=== PATIENT | male | born 1950 | race African-American/Black ===

== ENCOUNTER → 2019-12-05 | Outpatient (CLI) | payer MEDICARE ==
--- NOTE | 2019-12-05 09:21 | RADIOLOGY REPORT (SQ) ---
EXAM DESCRIPTION: U/S NON-OB PELVIS LTD W/O DOP IMAGES COMPLETED DATE/TIME: 12/05/2019 8:51 am REASON FOR STUDY: LEFT LOWER QUAD PAIN N50.812 LEFT TESTICULAR PAIN R10.32 LEFT LOWER QUADRANT JESI N COMPARISON: None. TECHNIQUE: Dynamic and static grayscale images acquired of the localized site of clinical concern an d recorded on PACS. Additional selected color Doppler and spectral images recorded. SITE OF CONCERN: Left inguinal region. LIMITATIONS: None. FINDINGS: No sonographic evidence of inguinal hernia. No solid or cystic masses. A few benign-appe aring lymph nodes are present. IMPRESSION: NO ABNORMAL SONOGRAPHIC FINDINGS IN THE LEFT INGUINAL REGION. TECHNICAL DOCUMENTATION: JOB ID: [id number] 2010 [employer]- All Rights Reserved Reading location - IP/workstation name: [email or web address]
== END ==
LOC: RAD 07:10
PROVIDERS: ATTEND Family Medicine
DX: N50.812 Left testicular pain (principal); R10.32 Left lower quadrant pain
CPT/HCPCS: 76857